=== PATIENT | male | born 1945 | race Caucasian/White ===

== ENCOUNTER → 2017-08-07 08:36 | Outpatient (CLI) | payer MEDICARE, OTHER, SELFPAY ==
--- NOTE | 2017-08-07 | DI.MRI.S_ITS ---
PROCEDURE: MR LUMBAR SPINE WO CON INDICATIONS: LUMBAR SPINE RADICULOPATHY TECHNIQUE: Noncontrast sagittal T1 spin echo and T2 fast echo, sagittal STIR, axial T1 and T2 fast spin echo through the lumbar spine. In cases with scoliosis, additional coronal T2 fast spin echo may be performed. COMPARISON: [facility], MR, L-SPINE WITHOUT CONTRAST, 11/20/2015, 18:41. [facility], CR, XR LUMBAR SPINE 2 OR 3 VIEWS, 07/30/2017, 8:40. FINDINGS: Image quality: Excellent. Alignment and Curvature: There are 5 lumbar-type vertebral bodies by plain film. There is mild grade 1 retrolisthesis of L1 on L2, L3 on L4, and L4 on L5. Bone Marrow: Marrow signal is diffusely heterogeneous. There is mild reactive signal within the endplates adjacent to the L1-L2, L3-L4, and L4-L5 intervertebral discs. No acute vertebral body compression fractures. Spinal Cord: Conus medullaris terminates at the upper L2 level. Visualized cord demonstrates normal signal and size. Paraspinous Soft Tissues: No paravertebral masses. L1-L2: Disc desiccation and diffuse disc bulge. Bilateral facet and ligamentum flavum hypertrophy. Mild canal stenosis. Mild foraminal stenosis bilaterally left greater than right. No change. L2-L3: Bilateral facet hypertrophy. Mild diffuse disc bulge. Right posterolateral annular tear. Mild canal stenosis. Mild foraminal stenosis bilaterally. No change. L3-L4: Disc desiccation and diffuse disc bulge. bilateral facet hypertrophy. Right posterolateral annular tear. Epidural lipomatosis. Mild canal stenosis. Mild foraminal stenosis bilaterally. No change. L4-L5: Disc desiccation and diffuse disc bulge/osteophyte. Bilateral facet hypertrophy. Right hemilaminotomy. No significant canal stenosis. Moderate right and mild left foraminal stenosis. No change. L5-S1: Disc desiccation and diffuse disc bulge. Bilateral facet hypertrophy. Mild canal stenosis. Mild left and moderate to severe right foraminal stenosis. No change. IMPRESSION: 1. Multilevel degenerative disc and facet disease, as well as epidural lipomatosis. 2. Mild multilevel canal stenoses. 3. Multilevel foraminal stenoses, worst on the right at L4-L5, and on the right at L5-S1 as described above. 4. No significant change in multilevel canal and foraminal stenoses. Dictated by: Andreea Scott M.D. on 08/07/2017 at 10:05 Approved by: Andreea Scott M.D. on 08/07/2017 at 10:09
== END ==
PROVIDERS: Visit Provider Orthopaedic Surgery Orthopaedic Surgery of the Spine
DX: M51.36 Other intervertebral disc degeneration, lumbar region (principal); M48.061 Spinal stenosis, lumbar region without neurogenic claudication; M99.73 Connective tissue and disc stenosis of intervertebral foramina of lumbar region
CPT/HCPCS: 72148

== ENCOUNTER 2018-08-31 16:39 | Day surgery (SDC) | payer MEDICARE, OTHER, SELFPAY ==
[2018-08-31] VITALS (7 sets, daily range): BP systolic 119–137; BP diastolic 65–75; PULSE 57–70; RESP 6–16; TEMP 36.7–36.9; O2SAT 100; BMI 22.1
--- NOTE | 2018-08-31 16:38 | PM.PREOP ---
Pre-operative Note Interval Note History & Physical reviewed/Exam performed by Physician: Yes Changes to H&P: No
[2018-08-31] MEDS: LACTATED RINGERS 1,000 ML 200 ML IV ×2 (17:35→20:00)
[2018-08-31] MEDS: CLINDAMYCIN 900 MG/50 ML PIGGYBACK 50 MG IV (19:26)
--- NOTE | 2018-08-31 19:53 | SUR.OPER ---
Supine on padded OR bed, head on pillow, arms secured on padded arm boards at <90 degrees abduction, legs uncrossed, safety belt at thigh, tape over blanket over lower legs.
[2018-08-31] MEDS: BUPIVACAINE 0.5% (PF) VIAL 30 ML INJ (20:01)
--- NOTE | 2018-08-31 20:16 | PM.OP.1 ---
Operative Date/Time/Diagnoses Date of procedure: 08/31/18 Time of procedure: 20:16 Pre-op diagnosis: Incarcerated incisional ventral hernia Post-op diagnosis: same Procedure & Clinicians Procedure: Repair of hernia Same procedure as scheduled: Yes Indications: Symptomatic incarcerated hernia. Patient had a prior laparoscopic procedure. The hernias presumed to be related to his umbilical incision. Surgeon: Andres Santana Click Yes if Unassisted: Yes Anesthesia Type: General Operative Notes Findings: Very tiny defect a cm wide containing fat. Closure Type: primary Specimen(s): none sent Prosthetic devices, grafts, tissues, transplants, or devices: None Estimated Blood Loss (mL): 5 Blood products transfused: none Procedure in detail: The patient is placed supine on the operating room table underwent general LMA anesthesia. He was prepped and draped in the usual fashion. Vertical midline incision was made overlying the hernia. This was just above the umbilicus. It was carried down the level of the hernia sac. The hernia and its contents were from surrounding structures. The fascial edge was cleared. Because of the very small size of the fascial defect the contents which were fat could not be reduced and therefore were resected. Fascial edge was cleared and a single figure of 8 0 Ethibond suture was used to close the defect. Local anesthetic was infiltrated. The subcu was closed with interrupted 3 0 Vicryl. The skin was closed with interrupted 4 Vicryl subcuticular stitches and Steri-Strips. Dressing was applied patient was awakened and taken to recovery room extubated in good condition. Complications: none Condition: stable Disposition: PACU Plan for aftercare: Follow-up in the office
[2018-08-31] MEDS: OXYCODONE/ACETAMINOPHEN 5/325 TABLET 1 TAB PO (21:09)
== END 2018-08-31 21:35 | disposition home or self-care (01) ==
PROVIDERS: Visit Provider Specialist
PROC: (CPT 49561; principal; 2018-08-31 19:30)
DX: K43.0 Incisional hernia with obstruction, without gangrene (principal)
CPT/HCPCS: 49561; J1100; J2405; J2704; J3010

== ENCOUNTER 2020-06-02 09:38 | Emergency (ER) | payer MEDICARE, OTHER, SELFPAY ==
[2020-06-02 09:50] VITALS: BP 164/73; PULSE 76; RESP 16; TEMP 36.4; O2SAT 100; BMI 25.4
--- NOTE | 2020-06-02 10:19 | ED.LOWEXIN ---
HPI - Extremity Injury (Lower) General Chief Complaint: Extremity Injury, Lower Stated Complaint: SWELLING OF LEFT CALF, BEGAN LAST NIGHT Time Seen by Provider: 06/02/20 10:19 Source: patient Mode of arrival: Ambulatory Limitations: no limitations History of Present Illness HPI Narrative: 75-year-old male comes to the emergency department with complaint of swelling of his left calf which he noted yesterday. He states he does have some pain. He states he has not had any trauma he states that he is active but has not been excessively so. He has not been exercising recently. Patient states that the area seems swollen. He denies any warmth, redness or skin changes. There has not been any discharge. Patient states he has not had a similar symptoms in the past. He states that he is able to ambulate without issue. He states it feels like it is more in the soft tissue region and he does not have any bony pain. Patient states he came in today because he has also recently noted that he has had increasing pain for the last 4 months in the joints of his hands and has appreciated some swelling in the joints of the fingers. He has also started to have some discomfort in his bilateral shoulders. He did see orthopedic surgery who told him he had arthritis. He sought PT in the last 2 days who felt that it would be appropriate for him to follow up with his primary care for further testing. He does take atorvastatin for the past 4 years. He has been using Voltaren topically but stopped 2 days ago at the recommendation of his PT. he has not had fevers. He denies other symptoms. He states he has had a cholecystectomy. His only allergies are to ampicillin. He does not smoke tobacco. Related Data Home Medications Medication Instructions Recorded Confirmed atorvastatin [Lipitor] 20 mg PO HS #0 07/15/17 09/13/18 ibuprofen 400 mg PO TID #0 07/15/17 09/13/18 Previous Rx's Medication Instructions Recorded hydrocodone-acetaminophen [[place]] 1 tab PO Q4-6H PRN #14 tab 08/31/18 Allergies Allergy/AdvReac Type Severity Reaction Status Date / Time ampicillin [AMPICILLIN] Allergy Unknown Verified 06/02/20 09:55 Review of Systems Review of Systems ROS Unobtainable: All systems reviewed & are unremarkable except as noted in HPI and below Patient History Medical History (Updated 06/02/20 @ 12:27 by Janet Robles DO) Cervical stenosis of spine Lumbar stenosis Surgical History H/O laminectomy Hx of cholecystectomy Family History Grandfather Cancer Social History marital status: household members: spouse occupational status: previously employed Smoking Status: Never smoker alcohol intake: current substance use type: does not use Smoking Status: Never smoker alcohol intake frequency: 0-2 drinks per day Substance Use Type: does not use Exam Narrative Exam Narrative: GENERAL: Alert and oriented x three, then, well-appearing male HEENT: Head normocephalic, atraumatic, EOMI, pupils reactive, face symmetric, moist mucous membranes NECK: Supple, full range of motion CARDIOVASCULAR: Regular rate and rhythm without murmurs, rubs or gallops. RESPIRATORY: Breath sounds equal bilaterally, no wheezes rales or rhonchi. ABDOMEN: Soft, nontender. Normoactive bowel sounds all 4 quadrants. No guarding or rebound, rigidity, no mass EXTREMITIES: Normal range of motion, no clubbing or edema. Neurovascularly intact. Patient has no bony tenderness of the left lower extremity. Cap refills less than 2 seconds bilaterally. Patient does have a fullness on the left medial calf, there is no discrete nodule, area of fluctuance or induration or mass appreciated. Feels like it is in the soft tissue. There is no warmth, erythema or other skin changes noted. Hair follicles appear normal. Patient is only very mildly tender with palpation. 5/ 5 muscle strength. It is noted that patient has some mild swelling of his hands particularly in the joints of his fingers. No other skin changes are appreciated. NEUROLOGICAL: Cranial nerves II through XII grossly intact. Moving all extremities full range of motion. SKIN: Warm, dry, no petechiae, no rashes or lesions. Initial Vital Signs Initial Vital Signs: Vital Signs Temperature 97.6 F 06/02/20 09:50 Pulse Rate 76 06/02/20 09:50 Respiratory Rate 16 06/02/20 09:50 Blood Pressure 164/73 H 06/02/20 09:50 Pulse Oximetry 100 06/02/20 09:50 Course Orders Ordered: ED Orders 06/02/20 10:36 US periph venous low extrem lt Stat Vital Signs Vital signs: Vital Signs - 8 hr 06/02/20 12:40 Pulse Rate 82 Respiratory Rate 16 Blood Pressure 132/69 Pulse Oximetry 98 MDM - Extremity Injury (Lower) Imaging Data US - DVT: My Impression: prelim data was not expressed by tech to myself. Radiologist's Impression: [address] [id number] ReportSigned Patient: Norberto Diaz Jr#: [id number]: 6Acct:[id number]/Sex: 75 / MDate of Service: 06/02/20Loc: EDAccession Number: [id number] Procedure: US periph venous low extrem lt Ordering Provider: Janet Robles D.O. PROCEDURE: US PERIPH VENOUS LOW EXTREM LT INDICATIONS: LEFT LEVY LUMP TECHNIQUE: Real-time imaging, as well as color and pulse Doppler interrogation, were performed of the lower extremity deep veins from the inguinal ligament to the popliteal fossa. COMPARISON: None. FINDINGS: The common femoral, femoral and popliteal veins are normally compressible, and free of intraluminal thrombus. Color and pulse Doppler demonstrate normal phasic intraluminal flow. There is normal augmentation response to distal compression maneuver. There is a complex ill-defined mass, left mid/medial levy measuring 5.7 x 2.1 x 4.6 cm, possibly representing hematoma. IMPRESSION: 1. Left chin lump may represent a hematoma measuring 5.7 cm in maximum diameter. 2. Negative left lower extremity duplex venous ultrasound for DVT. Comment: Preliminary findings were reported by the broadcast traffic coordinator to the referring provider at the time of study completion. Dictated by: Renzo Campos M.D. on 06/02/2020 at 10:50 Approved by: Renzo Campos M.D. on 06/02/2020 at 10:[address] [facility] Narrative Medical decision making narrative: This is a 75-year-old male with complaint of swelling of his left class that is new onset with no clear traumatic origin, the pain and swelling appear to be more localized so DVT is less likely although possible thrombophlebitis for a cyst and patient does not have any obvious infectious changes. Patient has also had some swelling and discomfort of his joints in his hands for the last several months as well as shoulders. He has seen orthopedic surgery who told him they suspected osteoarthritis but patient is following up this coming with his primary care for blood work and further evaluation for possible autoimmune source which I think is appropriate. We discussed we can do very basic testing but not the more detailed specific testing that would be more appropriate and patient defers blood work in the ED. Complex ill-defined mass was noted on the levy measuring 5.7 x 2.1 x 4.6 cm possibly representing a hematoma. Discussed with patient plan for warm compresses and watchful waiting. Patient may require repeat imaging if there is no improvement. He does have follow up this week with his primary care provider. Discharge Plan Departure Patient Disposition: Home Clinical Impression: Localized swelling, mass and lump, left lower limb Instructions: DI for Hematoma (Bruise) Activity Restrictions/Additional Instructions: Follow up with Dr. Tucker at your appointment this week. Your US imaging shows a 5.7x2.1x4.6cm ill-defined, complex mass in your left levy. This may be a hematoma but I would recommend follow up and if it does not resolve over the next several weeks or grows larger in size should have repeat imaging. I do think it is appropriate to discuss further evaluation for your joint pain and swelling of joints in your hands and pain in your shoulders. There is the possibility that it could be osteoarthritis but is certainly worthwhile to discuss autoimmune types of arthritis. You can continue to use Voltaren gel as needed. The systemic absorption is significantly lower the oral NSAIDs and less likely to cause issues. Return for fevers, rapidly worsening swelling of your lower extremity, new redness, warmth, increasing or new pain, lightheadedness or passing out, new chest pain or shortness of breath or other new or concerning symptoms. Prescriptions: No Action atorvastatin [Lipitor] 20 MG tablet 20 mg PO HS Qty: 0 RF: 0 ibuprofen 400 MG tablet 400 mg PO TID Qty: 0 RF: 0 hydrocodone-acetaminophen [[place]] 5-325 mg tablet 1 tab PO Q4-6H PRN (Reason: pain) Qty: 14 RF: 0 Referrals: Marvin Tucker MD [Primary Care Provider] -
--- NOTE | 2020-06-02 10:36 | DI.US.S_ITS ---
PROCEDURE: US PERIPH VENOUS LOW EXTREM LT INDICATIONS: LEFT LEVY LUMP TECHNIQUE: Real-time imaging, as well as color and pulse Doppler interrogation, were performed of the lower extremity deep veins from the inguinal ligament to the popliteal fossa. COMPARISON: None. FINDINGS: The common femoral, femoral and popliteal veins are normally compressible, and free of intraluminal thrombus. Color and pulse Doppler demonstrate normal phasic intraluminal flow. There is normal augmentation response to distal compression maneuver. There is a complex ill-defined mass, left mid/medial levy measuring 5.7 x 2.1 x 4.6 cm, possibly representing hematoma. IMPRESSION: 1. Left chin lump may represent a hematoma measuring 5.7 cm in maximum diameter. 2. Negative left lower extremity duplex venous ultrasound for DVT. Comment: Preliminary findings were reported by the solution spec to the referring provider at the time of study completion. Dictated by: Renzo Campos M.D. on 06/02/2020 at 10:50 Approved by: Renzo Campos M.D. on 06/02/2020 at 10:52
[2020-06-02 12:40] VITALS: BP 132/69; PULSE 82; RESP 16; O2SAT 98
== END 2020-06-02 12:40 | disposition home or self-care (01) ==
PROVIDERS: Emergency Provider Emergency Medicine; PCP Internal Medicine
DX: R22.42 Localized swelling, mass and lump, left lower limb (principal)
CPT/HCPCS: 93971; 99283

== ENCOUNTER → 2020-06-04 18:58 | Outpatient (ROUT) | payer MEDICARE, OTHER, SELFPAY ==
[2020-06-04 19:35] LABS: Add Manual Diff / Slide Review NO; Basophils Absolute Auto 0 /uL (0-100); Basophils Percent Auto 0.5 % (0-2); Eosinophils Absolute Auto 0 /uL (0-450); Eosinophils Percent Auto 0.7 % (2-4); Hemoglobin 13.9 g/dL (13.5-17.5); Lymphocytes Absolute Auto 1000 /uL (1100-4500); Lymphocytes Percent Auto 14.8 % (25-40); Mean Corpuscular HGB Conc 33.9 % (30-36); Mean Corpuscular Volume 91.7 fL (80-100); Monocytes Absolute Auto 800 /uL (0-900); Monocytes Percent Auto 12.1 % (3-14); Neutrophils Absolute Auto 5000 /uL (1500-7000); Neutrophils Percent Auto 71.9 % (50-75); Platelet Count 267 X10^3/uL (150-400); Red Blood Cell Count 4.47 X10^6/uL (4.5-5.9); Red Cell Distribution Width 13.6 % (11.6-14.8); White Blood Cell Count 6.9 X10^3/uL (4.5-11.0)
[2020-06-04 19:51] LABS: Alanine Aminotransferase 18 IU/L (<50); Albumin 4.4 g/dL (3.5-5.0); Albumin Globulin Ratio 1.4 (1.0-2.8); Alkaline Phosphatase 60 U/L (38-126); Aspartate Aminotransferase 22 IU/L (17-59); BUN Creatinine Ratio 20.8 (6-22); Bilirubin Total 0.4 mg/dL (0.2-1.3); Blood Urea Nitrogen 16 mg/dL (9-20); C-Reactive Protein Quant 1.1 mg/dL (<1.0); Calcium 9.7 mg/dL (8.4-10.2); Carbon Dioxide 27 mmol/L (22-32); Chloride 100 mmol/L (98-107); Cholesterol 155 mg/dL (140-199); Estimated Glomerular Filt Rate > 60.0 mL/min (>60); Globulin 3.1 g/dL (1.7-4.1); Glucose 123 mg/dL (80-110); HDL Cholesterol 88 mg/dL (40-60); HEMOLYSIS < 15 (0-50); LDL Cholesterol Calculated 58 mg/dL (<100); Potassium 4.8 mmol/L (3.4-5.1); Sodium 135 mmol/L (137-145); Total Protein 7.5 g/dL (6.3-8.2); Triglycerides 43 mg/dL (35-150)
[2020-06-04 19:55] LABS: Erythrocyte Sedimentation Rate 20 MM/HR (0-15)
[2020-06-04 20:09] LABS: Rheumatoid Factor < 8.6 IU/mL (<12.0)
[2020-06-04 20:20] LABS: Prostate Specific Antigen 1.79 ng/mL (0.10-4.00); TSH w/ Reflex to FT4 2.12 uIU/mL (0.47-4.68)
[2020-06-07 20:15] LABS: CCP Antibodies IgG/IgA 13 units (0-19)
== END ==
PROVIDERS: PCP Internal Medicine; Visit Provider Internal Medicine
DX: M25.50 Pain in unspecified joint (principal); E78.2 Mixed hyperlipidemia; N40.0 Benign prostatic hyperplasia without lower urinary tract symptoms; M06.9 Rheumatoid arthritis, unspecified
CPT/HCPCS: 80053; 80061; 84153; 84443; 85025; 85651; 86140; 86200; 86430